=== PATIENT | male | born 1995 | race Caucasian/White ===

== ENCOUNTER 2016-09-01 19:21 | Emergency (ER) | payer OTHER ==
[~2016-09-01] VITALS: Ht 185.4 cm; Wt 75.0 kg
[2016-09-01] MEDS ORDERED: HydrOXYzine PAMOATE 50 MG CAPSULE PO ONE (21:00)
[2016-09-01 22:10] VITALS: BP 124/75
== END 2016-09-01 22:23 | disposition home or self-care (01) ==
LOC: EMS 19:23
DX: F41.9 Anxiety disorder, unspecified (principal); J06.9 Acute upper respiratory infection, unspecified
CPT/HCPCS: 99283

== ENCOUNTER 2016-12-29 18:04 | Emergency (ER) | payer OTHER ==
[~2016-12-29] VITALS: Ht 185.4 cm; Wt 72.5 kg
[2016-12-29] MEDS ORDERED: IBUPROFEN 800 MG TABLET PO ONE (18:45)
[2016-12-29] MEDS ORDERED: BACITRACIN 0.9 GM PACKET OINTMENT TP ONE (19:00)
[2016-12-29 19:37] VITALS: BP 133/80
== END 2016-12-29 19:57 | disposition home or self-care (01) ==
LOC: EMS 18:05
DX: S61.012A Laceration without foreign body of left thumb without damage to nail, initial encounter (principal); W26.0XXA Contact with knife, initial encounter; Y93.89 Activity, other specified; Y92.89 Other specified places as the place of occurrence of the external cause; Y99.8 Other external cause status
CPT/HCPCS: 12001; 99283

== ENCOUNTER 2017-03-26 01:20 | Emergency (ER) | payer SELFPAY ==
[~2017-03-26] VITALS: Ht 185.4 cm; Wt 72.7 kg
[2017-03-26] MEDS ORDERED: LOPERAMIDE HCL 2 MG CAPSULE PO ONE (01:30)
[2017-03-26 01:39] VITALS: BP 118/79
[2017-03-26] MEDS ORDERED: ONDANSETRON HCL 4 MG TABLET PO ONE (01:45)
== END 2017-03-26 02:16 | disposition home or self-care (01) ==
LOC: EMS 01:21
DX: R19.7 Diarrhea, unspecified (principal); R10.84 Generalized abdominal pain
CPT/HCPCS: 99283; Q0162

== ENCOUNTER 2017-06-14 13:21 | Emergency (ER) | payer SELFPAY ==
[~2017-06-14] VITALS: Ht 185.4 cm; Wt 72.7 kg
[2017-06-14 13:35] VITALS: BP 132/82
== END 2017-06-14 16:10 | disposition left against medical advice (07) ==
LOC: EMS 13:41
DX: R42 Dizziness and giddiness (principal); R51 Headache; Z53.21 Procedure and treatment not carried out due to patient leaving prior to being seen by health care provider

== ENCOUNTER 2017-06-21 21:25 | Emergency (ER) | payer SELFPAY ==
[~2017-06-21] VITALS: Ht 185.4 cm; Wt 72.7 kg
[2017-06-22 02:50] VITALS: BP 122/69
== END 2017-06-22 02:52 | disposition home or self-care (01) ==
LOC: EMS 21:26
DX: R42 Dizziness and giddiness (principal); R51 Headache
CPT/HCPCS: 70450; 99284

== ENCOUNTER 2019-04-27 11:02 | Emergency (ER) | payer SELFPAY ==
[~2019-04-27] VITALS: Ht 185.4 cm; Wt 86.4 kg
[2019-04-27] MEDS ORDERED: IBUP-2271 PO (11:09)
[2019-04-27 12:15] VITALS: BP 122/76
== END 2019-04-27 12:37 | disposition home or self-care (01) ==
LOC: EMS 11:03
DX: R51 Headache (principal)

== ENCOUNTER 2021-08-17 23:51 | Emergency (ER) | payer SELFPAY ==
[~2021-08-17] VITALS: Ht 182.9 cm; Wt 95.0 kg
[~2021-08-17 23:51] MED LIST: IBUP-2759 PO
[2021-08-18] MEDS ORDERED: AMOX TR/POT CLAV 875 MG/125 MG TABLET PO ONE (00:45)
[2021-08-18] MEDS ORDERED: PERTUSS(ACELL),DIPH,TET VAC/PF 0.5 ML SYRINGE IM. ONE (00:45)
[2021-08-18] MEDS ORDERED: SODIUM CHLORIDE 0.9% 250 ML IRRIG SOLUTION BOTTLE IRRIG ONE (00:45)
[2021-08-18] MEDS ORDERED: RABIES IMMUNE GLOBULIN/PF 300 UNITS/ML 5 ML VIAL IM. ONE (01:00)
[2021-08-18] MEDS ORDERED: IBUPROFEN 600 MG TABLET PO ONE (01:00)
[2021-08-18] MEDS ORDERED: RABIES VACCINE (PCEC)/PF 2.5 UNITS/ML SYRINGE IM. ONE (01:00)
[2021-08-18 02:54] VITALS: BP 142/87
[2021-08-18] MEDS ORDERED: AMOX1TAB16 PO (02:55)
== END 2021-08-18 03:05 | disposition home or self-care (01) ==
LOC: EMS 23:52
DX: S61.251A Open bite of left index finger without damage to nail, initial encounter (principal); Z79.899 Other long term (current) drug therapy; W54.0XXA Bitten by dog, initial encounter; Y93.89 Activity, other specified; Y92.89 Other specified places as the place of occurrence of the external cause; Y99.8 Other external cause status
CPT/HCPCS: 90375; 90471; 90472; 90675; 90715; 96372; 99284